=== PATIENT | female | born 1995 | race Caucasian/White ===

== ENCOUNTER 2016-10-22 20:54 | Emergency (ER) | payer OTHER ==
[~2016-10-22] VITALS: Ht 157.5 cm; Wt 82.5 kg
[~2016-10-22 20:54] MED LIST: DIPH25TA24 PO; IBUP-1277 PO; IUD'IUD
[2016-10-22 21:05] VITALS: Ht 157.5 cm; Wt 82.5 kg
[2016-10-22 21:36] VITALS: TEMP 36.7; O2SAT 98
[2016-10-22] MEDS ORDERED: ONDANSETRON INJ 2 MG/ML 2 ML VIAL IV STA (21:37)
[2016-10-22] MEDS ORDERED: KETOROLAC TROMETHAMINE 30 MG/ML VIAL IV STA (21:37)
[2016-10-22 21:41] LABS: HEMATOCRIT 37.7 % (37-47); MEAN CELL VOLUME 89.8 fL (80-100); MEAN CORPUSCULAR HEMOGLOBIN 31.4 pg (25-34); MEAN PLATELET VOLUME 10.7 fL (7.4-10.4); PLATELET COUNT 322 K/uL (130-400); WHITE BLOOD COUNT 9.96 K/uL (4.8-10.8)
[2016-10-22] MEDS ORDERED: SODIUM CHLORIDE 0.9% 1000ML 1,000 ML IV STA ×2 (21:43)
[2016-10-22 21:47] LABS: INR 1.1 (0.9-1.1); PARTIAL THROMBOPLASTIN RATIO 1.1; PROTHROMBIN TIME (PATIENT) 11.4 SECONDS (9.0-12.0)
--- NOTE | 2016-10-22 21:53 | DIAGNOSTIC IMAGING REPORT ---
CHEST ONE VIEW PORTABLE CLINICAL HISTORY: Atypical chest pain COMPARISON STUDY: 06/07/2015 FINDINGS: The cardiac and mediastinal contours are normal. There is no evidence of focal pulmonary consolidation. There is no evidence of failure. No pleural effusions are visualized.[ IMPRESSION: No active disease in the chest. Electronically signed by: Paul Flores M.D. 10/22/2016 9:52 PM Dictated Date/Time: 10/22/2016 9:52 PM
[2016-10-22 21:55] LABS: PREG INTERNAL NEGATIVE QC NEG CLEAR BACKGROUND; PREG INTERNAL POSITIVE QC POS CONTROL LINE
[2016-10-22 21:57] LABS: BUN/CREATININE RATIO 15.8 (10-20); CALCIUM 10.2 mg/dl (8.5-10.1); CREATININE 0.77 mg/dl (0.60-1.20); POTASSIUM 3.5 mmol/L (3.5-5.1)
[2016-10-22 22:02] LABS: ALB/GLOB RATIO 1.2 (0.9-2)
[2016-10-22 22:05] LABS: URINE APPEARANCE CLEAR (CLEAR); URINE BILIRUBIN NEG (NEG); URINE COLOR YELLOW; URINE NITRITE NEG (NEG); URINE SPECIFIC GRAVITY 1.014 (1.000-1.030); UROBILINOGEN NEG (NEG); ZZUR CULT IF INDIC CLEAN CATCH NO
[2016-10-22 22:11] LABS: MANUAL MICROSCOPIC REQUIRED? NO; REVIEW REQ? NO
[2016-10-22 23:08] VITALS: BP 109/69; PULSE 66; O2SAT 98
--- NOTE | 2016-10-22 23:42 | EMERGENCY ROOM VISIT NOTE ---
History First contact with patient: 21:36 Chief Complaint: BACK PAIN Stated Complaint: UPPER RIB/CHEST PAIN - BACK PAIN - SEVERE [place] Nursing Triage Summary: see triage note History of Present Illness The patient is a 21 year old female who presents to the Emergency Room with complaints of low back pain that occasionally radiates to her groin for the past few days described as aching, ranging in severity currently 5 out of 10. Nothing makes it better or worse. Patient's been doing heavy weightlifting. Patient states despite the triage note states she has no chest pain whatsoever. Patient's been having nausea for quite some time now. She has an IUD. Patient denies urinary symptoms, vaginal itching or discharge, chest pain, dyspnea, fever, chills, cough, congestion. Review of Systems See HPI for pertinent positives & negatives. A total of 10 systems reviewed and were otherwise negative. 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 Vital signs stable. GENERAL: Pleasant female, in no acute distress, nondiaphoretic, well-developed well-nourished. SKIN: The skin was without rashes, erythema, edema, or bruising. There is no tenting of the skin. Capillary reflex less than 2 seconds. HEAD: Normocephalic atraumatic. EARS: External auditory canals clear, tympanic membranes pearly murphy without erythema or effusion bilaterally. EYES: Pupils equal round and reactive to light and accommodation. Conjunctivae without injection, sclerae without icterus. Extraocular movements intact. NOSE: Patent, turbinates without inflammation or discharge. MOUTH: Mucous membranes moist. Pharynx without erythema or exudate. Uvula midline. Airway patent. Tongue does not deviate. NECK: Supple without nuchal rigidity. No lymphadenopathy. No thyromegaly. Cervical spine is nontender. No JVD. HEART: Regular rate and rhythm without murmurs gallops or rubs. LUNGS: Clear to auscultation bilaterally without wheezes, rales or rhonchi. No dullness to percussion. No retractions or accessory muscle use. ABDOMEN: Positive bowel sounds x 4. Normal tympanic percussion. Soft, nontender, without masses or organomegaly. De La Fuente sign negative. No guarding or rebound tenderness. MUSCULOSKELETAL: No muscle atrophy, erythema, or edema noted. No thoracic or lumbar tenderness on exam. no CVA tenderness. 5 out of 5 strength throughout. Patient ambulate without difficulties. NEURO: Patient was alert and oriented to person place and time. Normal sensation to light and sharp touch. No focal neurological deficits. Medical Decision & Procedures Laboratory Results 10/22/16 21:30 10/22/16 21:30 Test 10/22/16 21:30 Red Blood Count 4.20 M/uL (4.2-5.4) Mean Corpuscular Volume 89.8 fL (80-100) Mean Corpuscular Hemoglobin 31.4 pg (25-34) Mean Corpuscular Hemoglobin Concent 35.0 g/dl (32-36) RDW Standard Deviation 41.3 fL (36.4-46.3) RDW Coefficient of Variation 12.6 % (11.5-14.5) Mean Platelet Volume 10.7 fL (7.4-10.4) Prothrombin Time 11.4 SECONDS (9.0-12.0) Prothromb Time International Ratio 1.1 (0.9-1.1) Activated Partial Thromboplast Time 29.5 SECONDS (21.0-31.0) Partial Thromboplastin Ratio 1.1 Urine Color YELLOW Urine Appearance CLEAR (CLEAR) Urine pH 7.0 (4.5-7.5) Urine Specific Staples 1.014 (1.000-1.030) Urine Protein NEG (NEG) Urine Glucose (UA) NEG (NEG) Urine Ketones NEG (NEG) Urine Occult Blood NEG (NEG) Urine Nitrite NEG (NEG) Urine Bilirubin NEG (NEG) Urine Urobilinogen NEG (NEG) Urine Leukocyte Esterase NEG (NEG) Anion Gap 10.0 mmol/L (3-11) Est Creatinine Clear Calc Drug Dose 113.1 ml/min Estimated GFR () 126.1 Estimated GFR (Non- 108.8 BUN/Creatinine Ratio 15.8 (10-20) Calcium Level 10.2 mg/dl (8.5-10.1) Total Bilirubin 0.5 mg/dl (0.2-1) Aspartate Amino Transf (AST/SGOT) 14 U/L (15-37) Alanine Aminotransferase (ALT/SGPT) 19 U/L (12-78) Alkaline Phosphatase 67 U/L (45-117) Total Creatine Kinase 115 U/L (26-192) Creatine Kinase MB 1.1 ng/ml (0.5-3.6) Creatine Kinase MB Ratio 1.0 (0-3.0) Total Protein 7.4 gm/dl (6.4-8.2) Albumin 4.0 gm/dl (3.4-5.0) Globulin 3.4 gm/dl (2.5-4.0) Albumin/Globulin Ratio 1.2 (0.9-2) Human Chorionic Gonadotropin, Qual NEG (NEG) Medications Administered Medications (Trade) Dose Ordered Sig/Bam Route Start Time Stop Time Status Last Admin Dose Admin Ketorolac Tromethamine (Toradol Inj) 30 mg NOW STAT IV 10/22/16 21:37 10/22/16 21:43 DC 10/22/16 21:54 30 MG Ondansetron HCl 4 mg 4 mg NOW STAT IV 10/22/16 21:37 10/22/16 21:43 DC 10/22/16 21:54 4 MG Sodium Chloride 1,000 ml @ 999 mls/hr Q1H1M STAT IV 10/22/16 21:43 10/22/16 22:43 DC 10/22/16 21:54 999 MLS/HR Sodium Chloride (Nss 1000ml) 1,000 ml @ 125 mls/hr Q8H STAT IV 10/22/16 21:43 10/23/16 05:42 10/22/16 21:54 125 MLS/HR ED Course Prior records/ancillary studies reviewed. Triage Nursing notes reviewed. The patient's history was concerning for back pain. Differential diagnosis: Etiologies such as musculoskeletal, disc herniation, fracture, aortic disease, metastatic disease, cord compression, discitis, infection, renal colic, gastrointestinal, acute exacerbation of chronic back pain, sciatica, cauda equina, as well as others were entertained. Physical findings: As above. No focal neurologic findings noted. ER treatment provided: Toradol On reassessment the patient felt better. Diagnostics interpreted by me: The labs revealed negative urine. No worrisome leukocytosis or electrolyte abnormality Imaging studies: Ultrasound shows IUD with no cyst. Bilateral blood flow. Normal kidneys Consultation: This appears to be consistent with back pain most likely muscle skeletal in nature. Patient was advised to avoid hard lifting and to try yoga and/or Pilates. She is advised to try Motrin for the pain and to stretch the area out. She is advised follow-up family care in a few days or here in the ER sooner for chest pain, dyspnea, abdominal pain, numbness, tingling, worsening signs or symptoms or as needed. Patient was neurovascularly and neurologically intact. She ambulated without difficulties.. The patient's physical examination and detailed history did not reveal any red flags for back pain such as those listed in the differential diagnosis. Therefore advanced diagnostics and consultations were felt to be unwarranted. By the evaluation outlined above emergent etiologies such as fracture, aortic disease, metastatic disease, infection, renal colic, gastrointestinal, cord compression, cauda equina, as well as others were deemed relatively unlikely. The pt informed about the findings as listed above. All questions were answered and pleased with the treatment. Return instructions were outlined and the patient was discharged in stable condition. Referral: The patient was referred back to primary care physician for follow-up in 2 to 3 days for a recheck of the current condition. History of uterine attending Medical Decision As above Impression Primary Impression: Back pain Departure Information Dispostion Home / Self-Care Condition GOOD Forms HOME CARE DOCUMENTATION FORM, Work Instructions, Return To Work: 1 day IMPORTANT VISIT INFORMATION Patient Instructions Back Pain - [facility], [facility] Additional Instructions Ibuprofen(Motrin, Advil) may be used for fever or pain. Use 600mg every six hours as needed. Take with food. Avoid using more than 2400mg in a 24 hour period. Do not use 2400mg per day for more than three consecutive days without physician direction. Prolonged inappropriate use can lead to stomach upset or ulcers. This medication can be taken if you need to drive, work, or perform activities which may be dangerous when taking narcotic pain medication. (AND/OR) Acetaminophen(Tylenol) may be used for fever or pain. Use 1000mg every six hours as needed. Avoid using more than 3000mg in a 24 hour period. This medication can be taken if you need to drive, work, or perform activities which may be dangerous when taking narcotic pain medication. Rest and avoid heavy lifting until your symptoms resolve and then gradually return to full activity. A good rule of thumb is if it hurts your back to perform a certain activity, then it should be avoided until you are healthy again. A heating pad, warm compresses, or a hot shower may help with tight muscles and can be done several times a day as needed. Continue current medications. Return to the ER immediately for any numbness, tingling, severe pain, loss of control of your bowels or bladder, inability to walk, or as needed. Follow up with your primary care physician within 3-5 days for a recheck of your current condition. Work Instructions Return To Work: 1 day Problem Qualifiers Primary Impression: Back pain Back pain location: low back pain Chronicity: acute Back pain laterality: bilateral Sciatica presence: without sciatica Qualified Codes: M54.5 - Low back pain
--- NOTE | 2016-10-23 06:36 | DIAGNOSTIC IMAGING REPORT ---
EXAMINATION: PELVIC ULTRASOUND CLINICAL HISTORY: ll. Pain, ? Cyst PAIN. NAUSEA. COMPARISON STUDY: FINDINGS: The uterus measured 8.5 cm. An intrauterine device is in position within the central canal. The endometrial stripe measured 3 mm.. The right ovary measured 2.7 cm. Normal vascular flow.. The left ovary measured 2.9 cm. Normal vascular flow. There is no ultrasonographic evidence of ovarian torsion. It should be noted that ovarian torsion can be present with normal Doppler ultrasonographic findings. There was no evidence of pathologic free pelvic fluid. IMPRESSION: Very small bilateral ovarian follicular cysts. Intrauterine device within the central canal of the uterus. Otherwise negative study. Electronically signed by: Leroy Henderson M.D. 10/23/2016 6:35 AM Dictated Date/Time: 10/23/2016 6:33 AM
--- NOTE | 2016-10-23 07:04 | DIAGNOSTIC IMAGING REPORT ---
ULTRASOUND KIDNEYS AND BLADDER CLINICAL HISTORY: Right flank pain. COMPARISON STUDY: Abdominal CT dated 04/16/2015. TECHNIQUE: Real-time, grayscale, and color flow sonography of the kidneys and bladder is performed. Images are reviewed in the transverse and longitudinal planes. FINDINGS: Kidneys: The kidneys are normal in size and echotexture. The right kidney measures 10.2 x 4.0 x 5.5 cm and the left kidney measures 10.1 x 4.3 x 4.8 cm. There is no hydronephrosis. No shadowing renal calculi are identified. There is no sonographic evidence of contour deforming renal mass lesion. No perinephric fluid is identified. Bladder: The bladder is decompressed and grossly normal in appearance. Bilateral ureteral jets were seen. IMPRESSION: 1. The kidneys are normal in size and without hydronephrosis. 2. The bladder was partially decompressed and grossly normal. Electronically signed by: Vinicio Andrews M.D. 10/23/2016 7:02 AM Dictated Date/Time: 10/23/2016 7:01 AM
== END 2016-10-22 23:37 | disposition home or self-care (01) ==
LOC: C.EDB 20:56 → C.EDA 23:37
DX: M54.5 Low back pain (principal); Z97.5 Presence of (intrauterine) contraceptive device; Z90.49 Acquired absence of other specified parts of digestive tract; Z91.018 Allergy to other foods; Z80.9 Family history of malignant neoplasm, unspecified; Z83.3 Family history of diabetes mellitus; Z83.79 Family history of other diseases of the digestive system; Z82.49 Family history of ischemic heart disease and other diseases of the circulatory system; Z84.1 Family history of disorders of kidney and ureter; Z82.0 Family history of epilepsy and other diseases of the nervous system

== ENCOUNTER → 2016-11-26 | Outpatient (CLI) | payer OTHER ==
[~2016-11-26] MED LIST changes: +ASPI-390 PO; -DIPH25TA24 PO; -IBUP-1277 PO; +LUPRON SQ; +PRENTAB26 PO
== END | disposition home or self-care (01) ==
LOC: C.PAPS 10:59
PROVIDERS: ATTEND Obstetrics & Gynecology
DX: Z01.419 Encounter for gynecological examination (general) (routine) without abnormal findings (principal)

== ENCOUNTER 2017-01-21 20:35 | Emergency (ER) | payer OTHER ==
[~2017-01-21] VITALS: Ht 154.9 cm; Wt 83.6 kg
[~2017-01-21 20:35] MED LIST changes: -ASPI-390 PO; -LUPRON SQ; -PRENTAB26 PO
[2017-01-21 20:54] VITALS: TEMP 36.5; Ht 154.9 cm; Wt 83.6 kg
[2017-01-21] MEDS ORDERED: PRENTAB26 PO (21:05)
[2017-01-21] MEDS ORDERED: LUPRON SQ (21:05)
[2017-01-21] MEDS ORDERED: ASPI-390 PO (21:06)
--- NOTE | 2017-01-21 22:04 | DIAGNOSTIC IMAGING REPORT ---
RIGHT FOREARM 2 VIEWS ROUTINE CLINICAL HISTORY: Right arm pain status post trauma COMPARISON: None. DISCUSSION: No fractures or dislocations are visualized. There is mild mid forearm soft tissue swelling. IMPRESSION: No fractures identified. Electronically signed by: Paul Flores M.D. 01/21/2017 10:02 PM Dictated Date/Time: 01/21/2017 10:01 PM
[2017-01-21] MEDS ORDERED: NORCO 5/325MG HOME PACK PO ONE (22:15)
--- NOTE | 2017-01-21 22:15 | EMERGENCY ROOM VISIT NOTE ---
ED Visit Note First contact with patient: 21:22 CHIEF COMPLAINT: Right forearm injury yesterday afternoon HISTORY OF PRESENT ILLNESS: Patient is a [id number]-[id number] 21-year-old female who presents emergency department for evaluation of a right forearm injury that she sustained yesterday afternoon. She stepped on a child's wheeled toy, which caused her to lose her balance. She fell, striking her forearm on her wall. She notes pain, swelling and bruising primarily in the ulnar aspect of her forearm. She took Excedrin Migraine, and applied ice to the area. She notes pain in the forearm that radiates towards her upper arm. It is worse with movement of her wrist. She notes some slight numbness in her fingers. She rates her discomfort a 6/10. She denies any weakness in the hand. No elbow or shoulder pain. REVIEW OF SYSTEMS: Review of systems as per HPI. All other systems reviewed were negative. At least 6 systems reviewed. PMH: Electronic medical records are reviewed and summarized as above/below. See Problem List. SOCIAL HISTORY: Patient lives at home with her and children. She does not smoke. PHYSICAL EXAM: Vital Signs: Reviewed Nurse's notes. CONSTITUTIONAL: Patient is a well-appearing 21-year-old white female who is awake and alert and in no acute distress. MUSCULOSKELETAL: Examination of the right forearm show slight swelling and ecchymosis noted over the mid shaft of the ulna. The area is tender to palpation. There is no obvious deformity, no fracture crepitus. The elbow and wrist are nontender. No joint effusion is appreciated. Elbow flexion , extension, pronation and supination are full. She does have some discomfort with wrist flexion and extension. Hand is warm and well-perfused. Capillary refill is brisk. Sensation light touch is intact. Radial and ulnar pulses are easily palpable. Skin is intact, without laceration or abrasion. EMERGENCY DEPARTMENT COURSE: An X-ray of the right forearm does not demonstrate any evidence for fracture. The patient was wrapped with an Rocky wrap. She was given a [place] home pack. Differential diagnosis includes fracture, contusion, dislocation, among others. She does not have any physical exam findings to suspect compartment syndrome. Supportive care measures were discussed. She is discharged home in good condition. Medication reconciliation: I attest that I have personally reviewed the patient' s current medication list. Blood pressure screening : Patient was found to have normal blood pressure on screening and does not require follow-up. RIGHT FOREARM 2 VIEWS ROUTINE CLINICAL HISTORY: Right arm pain status post trauma COMPARISON: None. DISCUSSION: No fractures or dislocations are visualized. There is mild mid forearm soft tissue swelling. IMPRESSION: No fractures identified. Problem List Medical Problems: (1) Abdominal pain Status: Resolved (2) Back pain Status: Resolved (3) Fall Status: Resolved (4) Headache Status: Resolved (5) Headache Status: Resolved (6) Migraines Status: Chronic (7) Personal history of malaria Status: Resolved Surgical Problems: (1) History of cholecystectomy Status: Resolved Current/Historical Medications Scheduled Ijowoms-Rqzlqomjrmzap-Njpimbvk (Excedrin Migraine), 1 TAB PO PRN UD Multivit/Min/Iron/Fol Ac/Pren ( Vitamin), 1 TAB PO DAILY [Lupron], 10 UNITS SQ DAILY Allergies Coded Allergies: [place] (Verified Allergy, Severe, ANAPHYLAXIS, 10/22/16) Uncoded Allergies: melons (Allergy, Severe, ANAPHYLAXIS, 01/24/15) Vital Signs Date Time Temp Pulse Resp B/P (MAP) Pulse Ox O2 Delivery O2 Flow Rate FiO2 01/21/17 22:17 65 18 131/83 99 Room Air 01/21/17 20:54 36.5 78 18 124/94 96 Room Air Medications Administered Medications (Trade) Dose Ordered Sig/Bam Route Start Time Stop Time Status Last Admin Dose Admin Acetaminophen/ Hydrocodone Bitart ([place] 5/325mg Home Pack) 1 homepack UD ONCE PO 01/21/17 22:15 01/21/17 22:16 DC 01/21/17 22:20 1 HOMEPACK Departure Information Impression Primary Impression: Contusion of forearm, right Referrals No Doctor, Assigned (PCP) Patient Instructions [facility] Additional Instructions Hydrocodone/Acetaminophen ([place]) 5/325 mg: Take 1 tablet at bedtime for breakthrough pain. Avoid alcohol, operating machinery or dangerous equipment, working on ladders or roofs, DRIVING, or situations where being under the influence may be dangerous. It is recommended to use an vowi-tmh-uounskb stool softener such as Colace, 100mg twice daily while taking this medication to avoid constipation. Ibuprofen(Motrin, Advil) may be used for fever or pain. Use 600mg every six hours as needed. Take with food. Avoid using more than 2400mg in a 24 hour period. Do not use 2400mg per day for more than three consecutive days without physician direction. Prolonged inappropriate use can lead to stomach upset or ulcers. This medication can be taken if you need to drive, work, or perform activities which may be dangerous when taking narcotic pain medication. (AND/OR) Acetaminophen(Tylenol) may be used for fever or pain. Use 1000mg every six hours as needed. Avoid using more than 3000mg in a 24 hour period. This medication can be taken if you need to drive, work, or perform activities which may be dangerous when taking narcotic pain medication. Ice compresses for 20 minutes at a time four times daily for 2-3 days. Use the [place] wrap as instructed. Rest and elevate your injury. May resume normal activity after pain allows. Continue current medications. Return to the ER immediately for any numbness, tingling, severe pain, extreme swelling in the extremity or as needed. Follow-up with your primary care provider if your symptoms are not improving in 3-5 days.
[2017-01-21 22:17] VITALS: BP 131/83; PULSE 65; O2SAT 99
== END 2017-01-21 22:21 | disposition home or self-care (01) ==
LOC: C.EDB 20:36 → C.EDD 22:21
DX: S50.11XA Contusion of right forearm, initial encounter (principal); W18.09XA Striking against other object with subsequent fall, initial encounter; Z90.49 Acquired absence of other specified parts of digestive tract; Z79.899 Other long term (current) drug therapy

== ENCOUNTER → 2017-06-13 | Outpatient (CLI) | payer OTHER ==
[~2017-06-13] MED LIST changes: +ASPI-390 PO; -IUD'IUD; +LUPRON SQ; +PRENTAB26 PO
== END | disposition home or self-care (01) ==
LOC: C.LAB 08:12
PROVIDERS: ATTEND Obstetrics & Gynecology Reproductive Endocrinology
DX: Z31.9 Encounter for procreative management, unspecified (principal)

== ENCOUNTER → 2017-07-17 | Outpatient (CLI) | payer OTHER | END | disposition home or self-care (01) | LOC: C.LAB 08:21 | PROVIDERS: ATTEND Obstetrics & Gynecology Reproductive Endocrinology | DX: Z31.9 Encounter for procreative management, unspecified (principal) ==

== ENCOUNTER → 2017-07-24 | Outpatient (CLI) | payer OTHER | END | disposition home or self-care (01) | LOC: C.LAB 07:03 | PROVIDERS: ATTEND Obstetrics & Gynecology Reproductive Endocrinology | DX: Z31.9 Encounter for procreative management, unspecified (principal) ==

== ENCOUNTER → 2017-07-31 | Outpatient (CLI) | payer OTHER | END | disposition home or self-care (01) | LOC: C.LAB 09:38 | PROVIDERS: ATTEND Obstetrics & Gynecology Reproductive Endocrinology | DX: Z31.9 Encounter for procreative management, unspecified (principal) ==